=== PATIENT | female | born 1990 | race Caucasian/White ===

== ENCOUNTER → 2016-09-12 | Outpatient (REF) | payer OTHER, MEDICAID ==
[~2016-09-12] MED LIST: ACET50TA PO; IBUP-1114 PO; IBUP80TA PO; PRENTAB9 PO; TUMS500C PO; VITAPRTA PO
== END ==
LOC: M LAB REF 16:36
PROVIDERS: ATTEND Physician Assistant Medical
DX: J02.9 Acute pharyngitis, unspecified (principal)

== ENCOUNTER → 2017-03-27 | Outpatient (REF) | payer OTHER | LOC: M LAB REF 19:07 | PROVIDERS: ATTEND Nurse Practitioner Family | DX: J06.9 Acute upper respiratory infection, unspecified (principal) ==

== ENCOUNTER → 2018-02-19 | Outpatient (REF) | payer OTHER ==
[2018-02-19 17:04] LABS: CONTROL LINE HCG INT CTR LINE PRESENT; HCG, SERUM QUALITATIVE NEGATIVE (NEGATIVE)
[2018-02-19 17:16] LABS: BASO % 0.3 % (0.0-1.0); EOS # 0.1 10^3/uL (0.0-0.50); EOS % 1.4 % (0.0-3.0); HEMATOCRIT 38.6 % (36.0-47.0); HEMOGLOBIN 12.7 g/dl (12.0-15.5); IMMATURE GRANULOCYTE % 0.2 % (0-3.0); LYMPH # 3.7 10^3/uL (1.5-6.5); LYMPH % 42.4 % (24.0-44.0); MEAN CORPUSCULAR HEMOGLOBIN 27.7 pg (27.0-33.0); MEAN CORPUSCULAR HGB CONC 32.9 g/dl (32.0-36.5); MEAN CORPUSCULAR VOLUME 84.3 fl (80.0-96.0); MONO # 0.6 10^3/uL (0.0-0.8); MONO % 6.4 % (0.0-5.0); NEUTROPHILS # 4.3 10^3/uL (1.8-7.7); NEUTROPHILS % 49.3 % (36.0-66.0); PLATELET COUNT, AUTOMATED 309 10^3/uL (150-450); RED BLOOD COUNT 4.58 10^6/uL (4.00-5.40); RED CELL DISTRIBUTION WIDTH 12.4 % (11.5-14.5); WHITE BLOOD COUNT 8.8 10^3/uL (4.0-10.0)
[2018-02-19 17:19] LABS: ALBUMIN 3.9 GM/DL (3.2-5.2); ALBUMIN/GLOBULIN RATIO 1.11 (1.00-1.93); ALKALINE PHOSPHATASE 62 U/L (45-117); ALT/SGPT 24 U/L (12-78); ANION GAP 8 MEQ/L (8-16); AST/SGOT 15 U/L (7-37); BILIRUBIN,TOTAL 0.3 MG/DL (0.2-1.0); BLOOD UREA NITROGEN 8 MG/DL (7-18); CALCIUM LEVEL 8.9 MG/DL (8.5-10.1); CARBON DIOXIDE LEVEL 27 MEQ/L (21-32); CHLORIDE LEVEL 107 MEQ/L (98-107); FREE T4 1.24 NG/DL (0.76-1.46); GLOMERULAR FILTRATION RATE > 60.0 (>60); GLUCOSE, FASTING 96 MG/DL (70-100); POTASSIUM SERUM 4.7 MEQ/L (3.5-5.1); SODIUM LEVEL 142 MEQ/L (136-145); TOTAL PROTEIN 7.4 GM/DL (6.4-8.2)
== END ==
LOC: M SFHCADAM 08:58
DX: G44.52 New daily persistent headache (NDPH) (principal)

== ENCOUNTER → 2018-02-21 | Outpatient (CLI) | payer OTHER ==
[~2018-02-21] MED LIST changes: -ACET50TA PO; -IBUP-1114 PO; -IBUP80TA PO; +ISOVUE-370 76% 100ML VIAL (Q9967) As Ordered; -PRENTAB9 PO; -TUMS500C PO; -VITAPRTA PO
== END ==
LOC: M RAD 17:03
DX: R51 Headache (principal)

== ENCOUNTER 2018-03-21 14:21 | Emergency (ER) | payer OTHER, MEDICAID ==
[2018-03-21 14:51] LABS: BASO % 0.4 % (0.0-1.0); EOS # 0.3 10^3/uL (0.0-0.50); EOS % 2.6 % (0.0-3.0); HEMATOCRIT 38.6 % (36.0-47.0); HEMOGLOBIN 13.1 g/dl (12.0-15.5); IMMATURE GRANULOCYTE % 0.7 % (0-3.0); LYMPH # 3.3 10^3/uL (1.5-6.5); LYMPH % 33.1 % (24.0-44.0); MEAN CORPUSCULAR HEMOGLOBIN 27.5 pg (27.0-33.0); MEAN CORPUSCULAR HGB CONC 33.9 g/dl (32.0-36.5); MEAN CORPUSCULAR VOLUME 81.1 fl (80.0-96.0); MONO # 0.5 10^3/uL (0.0-0.8); MONO % 4.5 % (0.0-5.0); NEUTROPHILS # 5.9 10^3/uL (1.8-7.7); NEUTROPHILS % 58.7 % (36.0-66.0); PLATELET COUNT, AUTOMATED 304 10^3/uL (150-450); RED BLOOD COUNT 4.76 10^6/uL (4.00-5.40); RED CELL DISTRIBUTION WIDTH 12.3 % (11.5-14.5)
[2018-03-21 14:54] LABS: KETONE, URINE AUTO RFX NEGATIVE (NEGATIVE); LEUKOCYTE ESTERASE UR AUTO RFX NEGATIVE (NEGATIVE); NITRITE, URINE AUTO RFX NEGATIVE (NEGATIVE); RBC, URINE AUTO RFX 1 /HPF (0-3); SPECIFIC GRAVITY UR AUTO RFX 1.009 (1.002-1.035); SQUAM EPITHELIAL CELL UR AURFX 1 /HPF (0-6); WBC, URINE AUTO RFX 0 /HPF (0-3)
[2018-03-21 15:14] LABS: ANION GAP 9 MEQ/L (8-16); BLOOD UREA NITROGEN 10 MG/DL (7-18); CALCIUM LEVEL 9.1 MG/DL (8.5-10.1); CARBON DIOXIDE LEVEL 25 MEQ/L (21-32); CHLORIDE LEVEL 108 MEQ/L (98-107); GLOMERULAR FILTRATION RATE > 60.0 (>60); GLUCOSE, FASTING 107 MG/DL (70-100); POTASSIUM SERUM 3.8 MEQ/L (3.5-5.1); SODIUM LEVEL 142 MEQ/L (136-145)
[2018-03-21] MEDS ORDERED: ISOVUE-370 76% 100ML VIAL (Q9967) As Ordered (19:08)
[2018-03-21] MEDS: ONDANSETRON 4MG/2ML VIAL (J2405) IV (20:16)
[2018-03-21] MEDS: NS 1,000 ML IV (20:16)
[2018-03-21] MEDS: KETOROLAC 30 MG/ML VIAL (J1885) IV (20:17)
[2018-03-21] MEDS: GI COCKTAIL 50ML BTL(HYOSCYAMINE/MAALOX/LIDOCAINE VISCOUS)(1:3:1) PO (20:50)
== END 2018-03-21 21:22 | disposition home or self-care (01) ==
LOC: M ED 14:21
DX: K42.9 Umbilical hernia without obstruction or gangrene (principal); N83.202 Unspecified ovarian cyst, left side
CPT/HCPCS: J2405

== ENCOUNTER → 2018-04-19 | Outpatient (REF) | payer OTHER, MEDICAID ==
[2018-04-19 13:25] LABS: BASO % 0.3 % (0.0-1.0); EOS # 0.1 10^3/uL (0.0-0.50); HEMATOCRIT 39.8 % (36.0-47.0); HEMOGLOBIN 12.9 g/dl (12.0-15.5); IMMATURE GRANULOCYTE % 0.3 % (0-3.0); LYMPH # 3.2 10^3/uL (1.5-6.5); LYMPH % 46.1 % (24.0-44.0); MEAN CORPUSCULAR HEMOGLOBIN 27.6 pg (27.0-33.0); MEAN CORPUSCULAR HGB CONC 32.4 g/dl (32.0-36.5); MEAN CORPUSCULAR VOLUME 85.2 fl (80.0-96.0); MONO # 0.4 10^3/uL (0.0-0.8); MONO % 5.6 % (0.0-5.0); NEUTROPHILS # 3.3 10^3/uL (1.8-7.7); NEUTROPHILS % 46.7 % (36.0-66.0); PLATELET COUNT, AUTOMATED 329 10^3/uL (150-450); RED BLOOD COUNT 4.67 10^6/uL (4.00-5.40); RED CELL DISTRIBUTION WIDTH 12.6 % (11.5-14.5)
[2018-04-19 13:46] LABS: DRVV SCREEN 36.6 SEC
[2018-04-19 13:57] LABS: ALBUMIN/GLOBULIN RATIO 1.29 (1.00-1.93); ALKALINE PHOSPHATASE 72 U/L (45-117); ALT/SGPT 20 U/L (12-78); ANION GAP 7 MEQ/L (8-16); AST/SGOT 16 U/L (7-37); BILIRUBIN,TOTAL 0.4 MG/DL (0.2-1.0); BLOOD UREA NITROGEN 12 MG/DL (7-18); CALCIUM LEVEL 8.8 MG/DL (8.5-10.1); CARBON DIOXIDE LEVEL 27 MEQ/L (21-32); CHLORIDE LEVEL 108 MEQ/L (98-107); CREATININE FOR GFR 0.78 MG/DL (0.55-1.30); GLOMERULAR FILTRATION RATE > 60.0 (>60); GLUCOSE, FASTING 102 MG/DL (70-100); POTASSIUM SERUM 4.3 MEQ/L (3.5-5.1); RHEUMATOID FACTOR QUANT < 10.0 IU/ML (<15.0); SODIUM LEVEL 142 MEQ/L (136-145); TOTAL PROTEIN 7.1 GM/DL (6.4-8.2)
[2018-04-19 13:58] LABS: ERYTHROCYTE SEDIMENTATION RATE 13 mm/hr (0-20); FOLATE 13.8 NG/ML; TOTAL 25(OH) VITAMIN D 29.2 NG/ML (30.0-100.0)
[2018-04-19 14:42] LABS: PTT LUPUS TYPE ANTICOAG SCREEN 0.9 (0-1.2)
[2018-04-20 15:03] LABS: ANTINUCLEAR ANTIBODIES DIRECT Negative (Negative)
[2018-04-21 11:55] LABS: ALBUMIN 4.39 GM/DL (3.29-5.55); ALBUMIN % 61.9 % (55.8-66.1); ALPHA-1-GLOBULIN % 3.9 % (2.9-4.9); ALPHA-1-GLOBULINS 0.28 GM/DL (0.17-0.41); ALPHA-2-GLOBULINS 0.67 GM/DL (0.42-0.99); ALPHA-2-GLOBULINS % 9.5 % (7.1-11.8)
[2018-04-21 11:56] LABS: BETA-1-GLOBULINS 0.43 GM/DL (0.28-0.60); BETA-2-GLOBULINS 0.35 GM/DL (0.19-0.55); BETA-2-GLOBULINS % 4.9 % (3.2-6.5); GAMMA GLOBULIN % 13.8 % (11.1-18.8); GAMMA GLOBULINS 0.98 GM/DL (0.65-1.58)
[2018-04-22 14:21] LABS: VITAMIN B1 LEVEL WHOLE BLOOD 136.1 nmol/L (66.5-200.0); VITAMIN B6,PYRIDOXAL PHOSPHATE 5.7 ug/L (2.0-32.8)
[2018-04-24 01:40] LABS: VITAMIN E(ALPHA TOCOPHEROL) 10.5 mg/L (5.9-19.4); VITAMIN E(GAMMA TOCOPHEROL) 2.3 mg/L (0.7-4.9)
== END ==
LOC: M LABDRWAD 12:28
DX: R51 Headache (principal)

== ENCOUNTER → 2018-06-29 | Outpatient (REF) | payer OTHER, MEDICAID ==
[~2018-06-29] MED LIST changes: +IBUP-1114 PO; +IBUP80TA PO; -ISOVUE-370 76% 100ML VIAL (Q9967) As Ordered; +MAPA500T2 PO; +PRENTAB9 PO; +TUMS500C PO; +VITAPRTA PO; +ZOFR4TAB14 PO
[2018-06-29 18:45] LABS: HEMATOCRIT 37.3 % (36.0-47.0); HEMOGLOBIN 12.4 g/dl (12.0-15.5); MEAN CORPUSCULAR HEMOGLOBIN 27.6 pg (27.0-33.0); MEAN CORPUSCULAR HGB CONC 33.2 g/dl (32.0-36.5); MEAN CORPUSCULAR VOLUME 82.9 fl (80.0-96.0); PLATELET COUNT, AUTOMATED 325 10^3/uL (150-450); WHITE BLOOD COUNT 12.8 10^3/uL (4.0-10.0)
[2018-06-29 19:07] LABS: HCG, SERUM QUANTITATIVE 33 MIU/ML
[2018-06-29 19:25] LABS: RUBELLA IgG QUALITATIVE IMMUNE (IMMUNE)
[2018-06-29 19:54] LABS: HIV 1&2 SCREEN CENTAUR NEGATIVE (NEGATIVE)
[2018-07-01 10:49] LABS: HEPATITIS C VIRUS ABY INDEX 0.1 INDEX (<0.8)
== END ==
LOC: M LAB REF 17:29
PROVIDERS: ATTEND Obstetrics & Gynecology
DX: O36.80X0 Pregnancy with inconclusive fetal viability, not applicable or unspecified (principal)

== ENCOUNTER → 2018-07-01 | Outpatient (REF) | payer OTHER, MEDICAID ==
[2018-07-01 13:48] LABS: HCG, SERUM QUALITATIVE POSITIVE (NEGATIVE)
== END ==
LOC: M LAB REF 12:46
PROVIDERS: ATTEND Obstetrics & Gynecology
DX: O36.80X0 Pregnancy with inconclusive fetal viability, not applicable or unspecified (principal)

== ENCOUNTER → 2018-07-14 | Outpatient (REF) | payer OTHER, MEDICAID | LOC: M LAB REF 12:59 | PROVIDERS: ATTEND Obstetrics & Gynecology | DX: O03.4 Incomplete spontaneous abortion without complication (principal) ==

== ENCOUNTER → 2018-07-18 | Outpatient (REF) | payer BC | LOC: M LAB REF 13:14 | PROVIDERS: ATTEND Obstetrics & Gynecology | DX: O36.80X0 Pregnancy with inconclusive fetal viability, not applicable or unspecified (principal) ==

== ENCOUNTER → 2018-07-25 | Outpatient (REF) | payer BC | LOC: M LAB REF 12:50 | PROVIDERS: ATTEND Obstetrics & Gynecology | DX: O36.80X0 Pregnancy with inconclusive fetal viability, not applicable or unspecified (principal); Z3A.00 Weeks of gestation of pregnancy not specified ==

== ENCOUNTER → 2018-08-01 | Outpatient (REF) | payer BC | LOC: M LAB REF 13:15 | PROVIDERS: ATTEND Obstetrics & Gynecology | DX: O03.4 Incomplete spontaneous abortion without complication (principal) ==

== ENCOUNTER → 2018-11-29 | Outpatient (REF) | payer BC ==
[2018-11-29 20:32] LABS: HCG, SERUM QUALITATIVE POSITIVE (NEGATIVE)
[2018-11-29 20:41] LABS: PROTHROMBIN TIME 13.3 SECONDS (12.1-14.4)
== END ==
LOC: M LABDRWAD 19:09
PROVIDERS: ATTEND Physician Assistant Medical
DX: R90.89 Other abnormal findings on diagnostic imaging of central nervous system (principal)

== ENCOUNTER → 2018-11-30 | Outpatient (REF) | payer BC | LOC: M LAB REF 12:55 | PROVIDERS: ATTEND Physician Assistant | DX: J02.9 Acute pharyngitis, unspecified (principal) ==

== ENCOUNTER → 2018-12-08 | Outpatient (REF) | payer BC ==
[2018-12-08 13:24] LABS: HEMATOCRIT 38.2 % (36.0-47.0); HEMOGLOBIN 12.7 g/dl (12.0-15.5); MEAN CORPUSCULAR HEMOGLOBIN 28.9 pg (27.0-33.0); MEAN CORPUSCULAR HGB CONC 33.2 g/dl (32.0-36.5); MEAN CORPUSCULAR VOLUME 86.8 fl (80.0-96.0); PLATELET COUNT, AUTOMATED 329 10^3/uL (150-450); WHITE BLOOD COUNT 11.2 10^3/uL (4.0-10.0)
[2018-12-08 14:45] LABS: HCG, SERUM QUANTITATIVE 43214 MIU/ML
[2018-12-09 10:49] LABS: RUBELLA IgG QUALITATIVE IMMUNE (IMMUNE)
[2018-12-09 11:18] LABS: HIV 1&2 SCREEN CENTAUR NEGATIVE (NEGATIVE)
== END ==
LOC: M LAB REF 12:30
PROVIDERS: ATTEND Obstetrics & Gynecology
DX: O36.80X0 Pregnancy with inconclusive fetal viability, not applicable or unspecified (principal); Z32.01 Encounter for pregnancy test, result positive

== ENCOUNTER → 2019-05-10 | Outpatient (CLI) | payer BC, MEDICAID ==
[2019-05-10 16:31] LABS: HEMATOCRIT 31.5 % (36.0-47.0); HEMOGLOBIN 10.3 g/dl (12.0-15.5); MEAN CORPUSCULAR HEMOGLOBIN 28.4 pg (27.0-33.0); MEAN CORPUSCULAR HGB CONC 32.7 g/dl (32.0-36.5); MEAN CORPUSCULAR VOLUME 86.8 fl (80.0-96.0); PLATELET COUNT, AUTOMATED 268 10^3/uL (150-450); RED BLOOD COUNT 3.63 10^6/uL (4.00-5.40); WHITE BLOOD COUNT 9.6 10^3/uL (4.0-10.0)
== END ==
LOC: M LAB 14:29
PROVIDERS: ATTEND Obstetrics & Gynecology
DX: Z34.83 Encounter for supervision of other normal pregnancy, third trimester (principal)

== ENCOUNTER → 2019-06-27 | Outpatient (REF) | payer BC, MEDICAID | LOC: M LAB REF 13:34 | PROVIDERS: ATTEND Obstetrics & Gynecology | DX: Z36.85 Encounter for antenatal screening for Streptococcus B (principal); Z3A.00 Weeks of gestation of pregnancy not specified ==

== ENCOUNTER → 2019-07-12 | Outpatient (CLI) | payer BC, MEDICAID ==
--- NOTE | 2019-07-13 11:25 | REP ---
Clinical: Growth evaluation. Comparison: None . Findings: Examination demonstrates a single live intrauterine in breech presentation. motion is identified by technologist. Placenta is noted anterior/fundal and grade I I without evidence for placenta previa or abruption. Amniotic fluid volume is normal. Cervix measures 3.4 cm in length and appears closed. Nuchal cord cannot be excluded. Gestational age by LMP 37 weeks 4 days with SANGITA 07/29/2019 . Gestational age by current measurements 39 weeks 2 days with SANGITA 07/17/2019 . FHR equals 152 beats per minute. BPD 9.8 cm 40 weeks 1 day HC 35.6 cm 41 weeks 5 days AC 36.1 cm 40 weeks 0 days FL 7.5 cm 38 weeks 2 days HL 6.3 cm 36 weeks 2 days HC/AC ratio 0.98 Estimated weight 3925 grams ( 96th percentile). Amniotic fluid index: 17.3 cm (7.4 - 24.1) Umbilical cord SD ratio: 2.63 Anatomical assessment demonstrates normal structures including cranium, facial features, diaphragm, stomach, kidneys and bladder. Impression: Single live advanced gestation in breech presentation. Age by current measurements is greater than age by LMP. Nuchal cord cannot be excluded. Electronically Signed by Harish Francois MD 07/13/2019 06:17 A
== END ==
LOC: M RAD 10:42
PROVIDERS: ATTEND Obstetrics & Gynecology
DX: O32.1XX0 Maternal care for breech presentation, not applicable or unspecified (principal)

== ENCOUNTER 2019-07-24 21:30 | Inpatient (IN) | payer BC, MEDICAID ==
[~2019-07-24] VITALS: Ht 160 cm; Wt 96.1 kg
[2019-07-24 21:48] VITALS: BP 122/84
[2019-07-24 23:55] VITALS: BP 117/78
[2019-07-25] VITALS (36 sets, daily range): BP systolic 89–129; BP diastolic 50–78
[2019-07-25] MEDS ORDERED: LR 500 ML IV ONE (00:30)
[2019-07-25] MEDS: LR 1,000 ML IV SCH ×3 (00:30→18:54)
[2019-07-25 00:39] LABS: HEMATOCRIT 30.3 % (36.0-47.0); HEMOGLOBIN 9.4 g/dl (12.0-15.5); MEAN CORPUSCULAR VOLUME 77.5 fl (80.0-96.0); PLATELET COUNT, AUTOMATED 275 10^3/uL (150-450); RED BLOOD COUNT 3.91 10^6/uL (4.00-5.40); WHITE BLOOD COUNT 9.6 10^3/uL (4.0-10.0)
[2019-07-25] MEDS ORDERED: ONDANSETRON 4MG/2ML VIAL (J2405) As Ordered ONE (05:30)
[2019-07-25] MEDS ORDERED: ONDANSETRON 4MG/2ML VIAL (J2405) IV ONE (05:30)
--- NOTE | 2019-07-25 07:40 | HPE ---
DATE OF ADMISSION: 07/25/2019 Tiffany is a 28-year-old female 4, para 2-0-1-2 with an EDC of 07/29/2019, EGA 39 and 3/7th weeks gestation who presented to labor and delivery with complaints of regular contractions every 4-5 minutes and pelvic pressure. Upon evaluation she was found to be in early labor at this point she was monitored in labor and delivery. Her contractions persists and a decision was made to admit the patient. Her record reviewed which was essentially unremarkable. lab blood type is A positive, rubella immune, hepatitis negative, HIV negative, GC and chlamydia negative, 1 hour sugar testing was within normal limits. Her GBS is negative. PAST MEDICAL HISTORY: Significant for kidney stones. PAST SURGICAL HISTORY: Denies. SOCIAL HISTORY: She is . Denies any alcohol, drug or cigarette abuse. REVIEW OF SYSTEMS: Unremarkable. FAMILY HISTORY: Is significant for lung cancer, breast cancer, hypercholesterolemia and high blood pressure. MEDICATIONS: vitamins. ALLERGIES: No known drug allergies. PHYSICAL EXAMINATION ON ADMISSION: Obese female in no acute distress. Abdomen: Soft, nontender, nondistended. Extremities: No clubbing, cyanosis or edema. Vaginal exam 2 cm, 70% effaced, fetus at -3 to -4 station. Bedside ultrasound done confirmed vertex. Tracing reviewed, category I tracing, contractions every 4-7 minutes. ASSESSMENT: Intrauterine at 39-3/7th weeks gestation in early labor with significant contractions. PLAN: Admit to labor and delivery. We will continue to monitor the patient. Awaiting for spontaneous labor. Pain management also discussed. The patient up for an epidural. Continue to monitor. Anticipate delivery.
[2019-07-25] MEDS: miSOPROStol 50 MCG 1/2 TAB (S0191) PO SCH ×3 (13:30→20:00)
[2019-07-25] MEDS ORDERED: OXYTOCIN 30 UNITS IN 0.9% NaCl 500ML IV BAG (J2590) As Ordered ONE (17:41)
[2019-07-25] MEDS ORDERED: OXYTOCIN DRIP 30 UNITS in IV 1 EA IV SCH (17:45)
[2019-07-25] MEDS: FENTANYL/ROPIVACAINE/NACL BAG 100 ML EPIDURAL SCH (18:18)
[2019-07-25] MEDS ORDERED: EPIDURAL/PCA KEYS XX PRN (19:00)
[2019-07-25] MEDS ORDERED: NALOXONE INJ 0.4 MG/1 ML VIAL (J2310) IV PRN (19:00)
[2019-07-25] MEDS ORDERED: ePHEDrine SULFATE 25 MG/5 ML(5MG/ML) SYRINGE IV PRN (19:00)
[2019-07-25] MEDS ORDERED: REFRIGERATOR IV KEYS XX PRN (19:00)
[2019-07-25] MEDS ORDERED: diphenhydrAMINE INJ 50MG/ML VIAL (J1200) IV PRN (19:00)
[2019-07-25] MEDS ORDERED: EPIDURAL COMMENT XX SCH (19:00)
[2019-07-25] MEDS ORDERED: LACTATED RINGER'S 1000 ML IV PRN (19:00)
[2019-07-25] MEDS ORDERED: ONDANSETRON 4MG/2ML VIAL (J2405) IV PRN (19:00)
[2019-07-26] VITALS (18 sets, daily range): BP systolic 106–134; BP diastolic 56–79
[2019-07-26] MEDS: LR 1,000 ML IV SCH (00:30)
[2019-07-26] MEDS: FENTANYL/ROPIVACAINE/NACL BAG 100 ML EPIDURAL SCH (02:20)
[2019-07-26] MEDS: miSOPROStol 50 MCG 1/2 TAB (S0191) PO SCH ×2 (04:00)
[2019-07-26] MEDS ORDERED: ACETAMINOPHEN 500 MG TAB As Ordered ONE (05:08)
[2019-07-26] MEDS ORDERED: ACETAMINOPHEN 500 MG TAB PO ONE (05:15)
[2019-07-26] MEDS ORDERED: DIBUCAINE 1% OINTMENT 30GM TOP PRN (05:45)
[2019-07-26] MEDS ORDERED: MEASLES,MUMPS,RUBELLA VACCINE INJ (MMR-II) (90707) SC SCH (05:45)
[2019-07-26] MEDS ORDERED: OXYTOCIN DRIP 30 UNITS in IV 1 EA IV SCH (05:45)
[2019-07-26] MEDS ORDERED: RHOGAM 300 MCG (1500 IU) INJ (J2790) IM SCH (05:45)
[2019-07-26] MEDS ORDERED: IBUPROFEN 600 MG TAB PO PRN (05:45)
[2019-07-26] MEDS ORDERED: ANUSOL HC CREAM 30GM TOP PRN (05:45)
[2019-07-26] MEDS ORDERED: ONDANSETRON 4MG/2ML VIAL (J2405) IV PRN (05:45)
[2019-07-26] MEDS ORDERED: ACETAMINOPHEN TAB 650MG DOSE (2X325MG) PO PRN (05:45)
[2019-07-26] MEDS ORDERED: METHYLERGONOVINE MALEATE 0.2 MG TAB PO PRN (05:45)
[2019-07-26 05:48] LABS: CORD GAS ABE A -0.2; CORD GAS ABE V -0.2; CORD GAS HCO3 A 28.3 MEQ/L; CORD GAS HCO3 V 25.5 MEQ/L; CORD GAS O2 SAT A 27.2 %; CORD GAS O2 SAT V 62.4 %; CORD GAS PCO2 A 61.8 mmHg; CORD GAS PCO2 V 45.1 mmHg; CORD GAS PH A 7.279 UNITS; CORD GAS PH V 7.37 UNITS; CORD GAS PO2 A 15.5 mmHg; CORD GAS PO2 V 25.5 mmHg; CORD GAS SBC A 22.4 MEQ/L; CORD GAS SBC V 23.4 MEQ/L; CORD GAS TCO2 A 30.2 MEQ/L; CORD GAS TCO2 V 26.9 MEQ/L
[2019-07-26] MEDS: IBUPROFEN 800 MG TAB PO PRN ×2 (06:54→18:01)
[2019-07-26] MEDS: ACETAMINOPHEN 500 MG TAB PO PRN ×2 (11:14→21:25)
[2019-07-26] MEDS: PRENATAL VITAMINS CHEWABLE TABLET PO SCH (11:33)
[2019-07-26] MEDS: DOCUSATE SODIUM 100 MG CAP PO SCH ×2 (11:34→21:17)
--- NOTE | 2019-07-26 14:52 | DN ---
DATE OF DELIVERY: 07/26/2019 DELIVERY NOTE: Tiffany is a 28-year-old female, 4, para 2-0-1-2, with an estimated date of confinement (EDC) of 07/29/2019, estimated gestational age (EGA) 39-4/7 weeks gestation who presented to labor and delivery with complaints of contraction. She was found to be in early labor. She was then augmented with Cytotec as well as Pitocin. After an epidural she became fully dilated, delivered a live female infant in left occiput anterior position over an intact perineum. 8 and 9. weight 9 pounds 13 ounces. Placenta delivered spontaneously intact. Three-vessel cord. Perineum, vagina, and cervix inspected. No laceration noted. Estimated blood loss 300 mL. Both mother and baby in stable condition.
[2019-07-27] MEDS: IBUPROFEN 800 MG TAB PO PRN ×2 (03:17→11:35)
[2019-07-27 05:48] VITALS: BP 100/55
[2019-07-27] MEDS: DOCUSATE SODIUM 100 MG CAP PO SCH (08:10)
[2019-07-27] MEDS: PRENATAL VITAMINS CHEWABLE TABLET PO SCH (08:10)
== END 2019-07-27 12:02 | disposition home or self-care (01) | DRG 560 ==
LOC: M LDO 21:30 → M LDI 07-25 00:20 → M OBS 07-26 09:00
PROVIDERS: ADMIT Obstetrics & Gynecology; ATTEND Obstetrics & Gynecology
PROC: 10E0XZZ Delivery of Products of Conception, External Approach (ICD-10-PCS; principal; 2019-07-26)
DX: O80 Encounter for full-term uncomplicated delivery (principal); Z37.0 Single live birth; Z3A.39 39 weeks gestation of pregnancy

== ENCOUNTER 2019-12-30 17:55 | Emergency (ER) | payer BC, MEDICAID ==
[~2019-12-30] VITALS: Ht 162.6 cm; Wt 86.1 kg
[2019-12-30 17:55] VITALS: BP 123/77
[2019-12-30] MEDS ORDERED: ERYTHROMYCIN OPHTH OINT OD ONE (18:15)
[2019-12-30] MEDS ORDERED: TETRACAINE 0.5% OPHTH SOLN 4ML OD ONE (18:15)
[2019-12-30] MEDS ORDERED: IBUPROFEN 600MG TAB PO ONE (18:15)
[2019-12-30] MEDS ORDERED: IRRIGATION OPHTH SOLN (EYE WASH) 120ML OD ONE (18:15)
[2019-12-30] MEDS ORDERED: FLUORESCEIN OPHTH 1 MG STRIP OD ONE (18:15)
[2019-12-30] MEDS ORDERED: ERYT5OIN25 OD (18:25)
[2019-12-31] MEDS ORDERED: IBUP-1022 PO (09:11)
== END 2019-12-30 18:42 | disposition home or self-care (01) ==
LOC: M ED 17:55
DX: S05.01XA Injury of conjunctiva and corneal abrasion without foreign body, right eye, initial encounter (principal); X58.XXXA Exposure to other specified factors, initial encounter; Y92.89 Other specified places as the place of occurrence of the external cause

== ENCOUNTER 2019-12-31 09:07 | Emergency (ER) | payer BC, MEDICAID ==
[~2019-12-31] VITALS: Ht 162.6 cm; Wt 85.8 kg
[~2019-12-31 09:07] MED LIST changes: +ERYT5OIN25 OD
[2019-12-31] MEDS ORDERED: IBUP-1022 PO (09:11)
[2019-12-31] MEDS ORDERED: TETRACAINE 0.5% OPHTH SOLN 4ML OD ONE ×2 (09:45→11:30)
[2019-12-31] MEDS ORDERED: FLUORESCEIN OPHTH 1 MG STRIP OD ONE (10:00)
[2019-12-31] MEDS ORDERED: LORazepam 0.5 MG TAB PO STA (11:22)
[2019-12-31] MEDS ORDERED: ONDANSETRON 4 MG ORAL DISINTEGRATING TAB PO ONE (11:30)
[2019-12-31 11:55] VITALS: BP 117/73
== END 2019-12-31 11:57 | disposition home or self-care (01) ==
LOC: M ED 09:07
DX: S05.01XA Injury of conjunctiva and corneal abrasion without foreign body, right eye, initial encounter (principal); X58.XXXA Exposure to other specified factors, initial encounter; Y92.89 Other specified places as the place of occurrence of the external cause
CPT/HCPCS: 99283; Q0162

== ENCOUNTER → 2020-02-21 | Outpatient (REF) | payer BC, MEDICAID ==
[~2020-02-21] MED LIST changes: +IBUP-1022 PO
[2020-02-21 14:17] LABS: ALBUMIN 4.3 GM/DL (3.2-5.2); ALT/SGPT 16 U/L (12-78); BILIRUBIN,TOTAL 0.4 MG/DL (0.2-1.0); BLOOD UREA NITROGEN 13 MG/DL (7-18); CALCIUM LEVEL 9.6 MG/DL (8.5-10.1); CARBON DIOXIDE LEVEL 27 MEQ/L (21-32); CHLORIDE LEVEL 107 MEQ/L (98-107); CREATININE FOR GFR 0.71 MG/DL (0.55-1.30); GLOMERULAR FILTRATION RATE > 60.0 (>60); GLUCOSE, FASTING 92 MG/DL (70-100); POTASSIUM SERUM 4.6 MEQ/L (3.5-5.1); SODIUM LEVEL 137 MEQ/L (136-145); TOTAL PROTEIN 7.6 GM/DL (6.4-8.2)
[2020-02-21 14:19] LABS: BASO # 0.1 10^3/uL (0.0-0.2); BASO % 0.6 % (0.0-1.0); EOS # 0.1 10^3/uL (0.0-0.5); EOS % 1.7 % (0.0-3.0); LYMPH # 3.5 10^3/uL (1.5-5.0); LYMPH % 41.9 % (24.0-44.0); MEAN CORPUSCULAR HEMOGLOBIN 27.1 pg (27.0-33.0); MEAN CORPUSCULAR HGB CONC 31.7 g/dl (32.0-36.5); MEAN CORPUSCULAR VOLUME 85.6 fl (80.0-96.0); MONO # 0.6 10^3/uL (0.0-0.8); MONO % 6.8 % (0.0-5.0); NEUTROPHILS % 48.1 % (36.0-66.0); PLATELET COUNT, AUTOMATED 323 10^3/uL (150-450); RED BLOOD COUNT 4.79 10^6/uL (4.00-5.40); WHITE BLOOD COUNT 8.2 10^3/uL (4.0-10.0)
== END ==
LOC: M SFHCADAM 13:11
PROVIDERS: ATTEND Family Medicine
DX: Z00.00 Encounter for general adult medical examination without abnormal findings (principal); R10.9 Unspecified abdominal pain

== ENCOUNTER → 2020-11-28 | Outpatient (REF) | payer BC, MEDICAID ==
[2020-11-28 18:08] LABS: HEMATOCRIT 36.5 % (36.0-47.0); HEMOGLOBIN 11.9 g/dl (12.0-15.5); MEAN CORPUSCULAR HEMOGLOBIN 27.2 pg (27.0-33.0); MEAN CORPUSCULAR HGB CONC 32.6 g/dl (32.0-36.5); MEAN CORPUSCULAR VOLUME 83.5 fl (80.0-96.0); PLATELET COUNT, AUTOMATED 303 10^3/uL (150-450); RED BLOOD COUNT 4.37 10^6/uL (4.00-5.40)
[2020-11-28 19:34] LABS: HCG, SERUM QUANTITATIVE 4496 MIU/ML; HEPATITIS B SURFACE ANTIGEN NEGATIVE (NEGATIVE); HIV 1&2 SCREEN CENTAUR NEGATIVE (NEGATIVE)
== END ==
LOC: M LAB REF 16:55
PROVIDERS: ATTEND Obstetrics & Gynecology
DX: O36.80X0 Pregnancy with inconclusive fetal viability, not applicable or unspecified (principal); Z3A.00 Weeks of gestation of pregnancy not specified

== ENCOUNTER → 2020-12-05 | Outpatient (CLI) | payer BC, MEDICAID ==
--- NOTE | 2020-12-05 13:08 | REP ---
INDICATION: DATING AND VIABILITY COMPARISON: None. TECHNIQUE: Transabdominal and transvaginal 1st trimester obstetrical ultrasound with color Doppler evaluation. FINDINGS: Single live early intrauterine is appreciated. Gestational sac with yolk sac and pole identified. [place]-rump length of 6 mm corresponds to 6 weeks 3 days gestational age with estimated date of delivery 07/28/2021. heart rate equals 126 beats per minute. Maternal ovaries demonstrate septated cyst in the left ovary measuring 1.9 x 1.4 x 1.3 cm possibly representing corpus luteum. IMPRESSION: Single live early intrauterine at 6 weeks 3 days gestational age. Complete anatomical assessment should be performed and 19-20 weeks. <Electronically signed by Harish Francois > 12/05/20 [id number]
== END ==
LOC: M RAD 12:25
PROVIDERS: ATTEND Obstetrics & Gynecology
DX: Z36.89 Encounter for other specified antenatal screening (principal); N83.10 Corpus luteum cyst of ovary, unspecified side

== ENCOUNTER → 2020-12-05 | Outpatient (REF) | payer BC, MEDICAID | LOC: M LAB REF 17:29 | PROVIDERS: ATTEND Advanced Practice Midwife | DX: O20.0 Threatened abortion (principal) ==

== ENCOUNTER → 2020-12-07 | Outpatient (CLI) | payer BC, MEDICAID | LOC: M LAB 11:40 | PROVIDERS: ATTEND Obstetrics & Gynecology | DX: O20.0 Threatened abortion (principal); Z3A.00 Weeks of gestation of pregnancy not specified ==

== ENCOUNTER → 2020-12-09 | Outpatient (REF) | payer BC, MEDICAID | LOC: M LAB REF 16:51 | PROVIDERS: ATTEND Advanced Practice Midwife | DX: O36.80X0 Pregnancy with inconclusive fetal viability, not applicable or unspecified (principal); Z3A.00 Weeks of gestation of pregnancy not specified ==

== ENCOUNTER → 2020-12-16 | Outpatient (REF) | payer BC, MEDICAID | LOC: M LAB REF 16:51 | PROVIDERS: ATTEND Obstetrics & Gynecology | DX: O02.1 Missed abortion (principal) ==

== ENCOUNTER → 2020-12-23 | Outpatient (REF) | payer BC, MEDICAID | LOC: M LAB REF 16:29 | PROVIDERS: ATTEND Obstetrics & Gynecology | DX: O02.1 Missed abortion (principal) ==

== ENCOUNTER → 2020-12-31 | Outpatient (REF) | payer BC, MEDICAID | LOC: M LAB REF 12:14 | PROVIDERS: ATTEND Obstetrics & Gynecology | DX: O02.1 Missed abortion (principal) ==

== ENCOUNTER → 2021-01-09 | Outpatient (REF) | payer BC, MEDICAID | LOC: M LAB REF 16:35 | PROVIDERS: ATTEND Obstetrics & Gynecology | DX: O02.1 Missed abortion (principal) ==

== ENCOUNTER 2021-08-08 22:34 | Emergency (ER) | payer BC, MEDICAID ==
[~2021-08-08] VITALS: Ht 160 cm; Wt 88.6 kg
[2021-08-09] MEDS ORDERED: MORPHINE 4 MG/ML 1ML VIAL/SYRINGE (J2270) IV ONE (01:40)
[2021-08-09] MEDS ORDERED: ONDANSETRON 4MG/2ML VIAL IV ONE (01:40)
[2021-08-09 01:58] LABS: BASO # 0.1 10^3/uL (0.0-0.2); BASO % 0.4 % (0.0-1.0); EOS # 0.1 10^3/uL (0.0-0.5); EOS % 0.5 % (0.0-3.0); HEMATOCRIT 37.4 % (36.0-47.0); HEMOGLOBIN 12.3 g/dl (12.0-15.5); LYMPH # 3.6 10^3/uL (1.5-5.0); LYMPH % 26.8 % (24.0-44.0); MEAN CORPUSCULAR HEMOGLOBIN 27.1 pg (27.0-33.0); MEAN CORPUSCULAR HGB CONC 32.9 g/dl (32.0-36.5); MEAN CORPUSCULAR VOLUME 82.4 fl (80.0-96.0); MONO # 0.6 10^3/uL (0.0-0.8); MONO % 4.7 % (2.0-8.0); NEUTROPHILS # 8.9 10^3/uL (1.5-8.5); NEUTROPHILS % 67.3 % (36.0-66.0); PLATELET COUNT, AUTOMATED 320 10^3/uL (150-450); RED BLOOD COUNT 4.54 10^6/uL (4.00-5.40); WHITE BLOOD COUNT 13.3 10^3/uL (4.0-10.0)
[2021-08-09] MEDS ORDERED: ISOVUE-370 76% 100ML VIAL As Ordered ONE (02:36)
[2021-08-09 02:37] LABS: ERYTHROCYTE SEDIMENTATION RATE 19 mm/hr (0-20)
[2021-08-09] MEDS ORDERED: KETOROLAC 30 MG/ML 1ML VIAL IV ONE (03:00)
[2021-08-09 03:38] LABS: CK-MB VALUE MASS < 1.0 NG/ML (<3.6); CPK CREATINE PHOSPHOKINASE 43 U/L (26-192); MB/CK RELATIVE INDEX 2.33 (< OR =4)
[2021-08-09] MEDS ORDERED: NAPR-837 PO (04:56)
[2021-08-09 04:57] VITALS: BP 128/76
== END 2021-08-09 05:15 | disposition home or self-care (01) ==
LOC: EDBD 22:34 → M ED 22:34
DX: R07.9 Chest pain, unspecified (principal)
CPT/HCPCS: 71275; 80047; 82550; 82553; 84484; 84702; 85025; 85379; 85652; 86140; 93005; 96374; 96375; 99284; J1885; J2270; J2405; Q9967

== ENCOUNTER → 2021-09-04 | Outpatient (CLI) | payer BC, MEDICAID ==
[~2021-09-04] MED LIST changes: +NAPR-837 PO
[2021-09-04 17:33] LABS: BASO % 0.4 % (0.0-1.0); EOS # 0.1 10^3/uL (0.0-0.5); EOS % 1.3 % (0.0-3.0); HEMATOCRIT 38.9 % (36.0-47.0); HEMOGLOBIN 12.8 g/dl (12.0-15.5); LYMPH # 3.7 10^3/uL (1.5-5.0); LYMPH % 38.9 % (24.0-44.0); MEAN CORPUSCULAR HEMOGLOBIN 27.3 pg (27.0-33.0); MEAN CORPUSCULAR HGB CONC 32.9 g/dl (32.0-36.5); MEAN CORPUSCULAR VOLUME 82.9 fl (80.0-96.0); MONO # 0.5 10^3/uL (0.0-0.8); MONO % 5.6 % (2.0-8.0); NEUTROPHILS % 53.5 % (36.0-66.0); PLATELET COUNT, AUTOMATED 321 10^3/uL (150-450); RED BLOOD COUNT 4.69 10^6/uL (4.00-5.40); WHITE BLOOD COUNT 9.4 10^3/uL (4.0-10.0)
[2021-09-04 17:45] LABS: ALBUMIN 4.2 GM/DL (3.2-5.2); ALT/SGPT 25 U/L (12-78); BILIRUBIN,TOTAL 0.2 MG/DL (0.2-1.0); BLOOD UREA NITROGEN 12 MG/DL (7-18); CALCIUM LEVEL 9.4 MG/DL (8.5-10.1); CARBON DIOXIDE LEVEL 28 MEQ/L (21-32); CHLORIDE LEVEL 108 MEQ/L (98-107); CREATININE FOR GFR 0.69 MG/DL (0.55-1.30); GLOMERULAR FILTRATION RATE > 60.0 (>60); GLUCOSE, FASTING 106 MG/DL (70-100); POTASSIUM SERUM 4.7 MEQ/L (3.5-5.1); SODIUM LEVEL 139 MEQ/L (136-145); TOTAL PROTEIN 7.3 GM/DL (6.4-8.2)
== END ==
LOC: M PLALAB 15:20
PROVIDERS: ATTEND Nurse Practitioner Family
DX: Z00.00 Encounter for general adult medical examination without abnormal findings (principal)

== ENCOUNTER 2021-10-04 01:56 | Emergency (ER) | payer BC, MEDICAID ==
[~2021-10-04] VITALS: Ht 162.6 cm; Wt 89.4 kg
[2021-10-04 01:58] VITALS: BP 142/86
== END 2021-10-04 02:06 | disposition left against medical advice (07) ==
LOC: M ED 01:56
DX: Z53.21 Procedure and treatment not carried out due to patient leaving prior to being seen by health care provider (principal)

== ENCOUNTER → 2021-10-27 | Outpatient (CLI) | payer BC, MEDICAID | LOC: M PLALAB 15:43 | PROVIDERS: ATTEND Nurse Practitioner Family | DX: R10.84 Generalized abdominal pain (principal) ==

== ENCOUNTER → 2022-02-05 | Outpatient (REF) | payer BC, MEDICAID ==
[2022-02-05 17:45] LABS: HEMOGLOBIN 12.2 g/dl (12.0-15.5); MEAN CORPUSCULAR HEMOGLOBIN 27.7 pg (27.0-33.0); MEAN CORPUSCULAR VOLUME 84.1 fl (80.0-96.0); PLATELET COUNT, AUTOMATED 302 10^3/uL (150-450); WHITE BLOOD COUNT 9.2 10^3/uL (4.0-10.0)
[2022-02-06 00:37] LABS: HCG, SERUM QUANTITATIVE 33423 MIU/ML; HEPATITIS B SURFACE ANTIGEN NEGATIVE (NEGATIVE); HEPATITIS C VIRUS ABY INDEX < 0.0 INDEX (<0.8); HIV 1&2 SCREEN CENTAUR NEGATIVE (NEGATIVE)
== END ==
LOC: M LAB REF 16:15
PROVIDERS: ATTEND Obstetrics & Gynecology
DX: Z32.01 Encounter for pregnancy test, result positive (principal); O36.80X0 Pregnancy with inconclusive fetal viability, not applicable or unspecified

== ENCOUNTER → 2022-06-25 | Outpatient (CLI) | payer BC, MEDICAID ==
[2022-06-25 14:54] LABS: HEMATOCRIT 34.3 % (36.0-47.0); MEAN CORPUSCULAR HGB CONC 32.1 g/dl (32.0-36.5); MEAN CORPUSCULAR VOLUME 87.3 fl (80.0-96.0); PLATELET COUNT, AUTOMATED 308 10^3/uL (150-450); RED BLOOD COUNT 3.93 10^6/uL (4.00-5.40); WHITE BLOOD COUNT 10.4 10^3/uL (4.0-10.0)
== END ==
LOC: M PLALAB 11:17
PROVIDERS: ATTEND Obstetrics & Gynecology
DX: Z36.89 Encounter for other specified antenatal screening (principal)

== ENCOUNTER → 2022-09-01 | Outpatient (CLI) | payer BC, MEDICAID ==
[2022-09-01 17:12] LABS: BASO % 0.3 % (0.0-1.0); EOS # 0.1 10^3/uL (0.0-0.5); EOS % 0.8 % (0.0-3.0); HEMATOCRIT 34.9 % (36.0-47.0); HEMOGLOBIN 11.6 g/dl (12.0-15.5); LYMPH # 2.7 10^3/uL (1.5-5.0); LYMPH % 25.5 % (24.0-44.0); MEAN CORPUSCULAR HEMOGLOBIN 28.6 pg (27.0-33.0); MEAN CORPUSCULAR HGB CONC 33.2 g/dl (32.0-36.5); MONO # 0.8 10^3/uL (0.0-0.8); MONO % 7.6 % (2.0-8.0); NEUTROPHILS # 6.9 10^3/uL (1.5-8.5); PLATELET COUNT, AUTOMATED 244 10^3/uL (150-450); RED BLOOD COUNT 4.06 10^6/uL (4.00-5.40); WHITE BLOOD COUNT 10.7 10^3/uL (4.0-10.0)
[2022-09-01 17:18] LABS: ALBUMIN 2.8 G/DL (3.2-5.2); ALKALINE PHOSPHATASE 140 U/L (46-116); ALT/SGPT < 9 U/L (7.0-40); AST/SGOT 14 U/L (<34); BILIRUBIN,TOTAL 0.3 MG/DL (0.3-1.2); BLOOD UREA NITROGEN < 5 MG/DL (9-23); CALCIUM LEVEL 8.7 MG/DL (8.5-10.1); CARBON DIOXIDE LEVEL 25 MMOL/L (20-31); CHLORIDE LEVEL 104 MMOL/L (98-107); CREATININE FOR GFR 0.63 MG/DL (0.55-1.30); GLOMERULAR FILTRATION RATE > 60.0 (>60); GLUCOSE, FASTING 97 MG/DL (60-100); POTASSIUM SERUM 4.4 MMOL/L (3.5-5.1); SODIUM LEVEL 138 MMOL/L (136-145); TOTAL PROTEIN 6.1 G/DL (5.7-8.2)
== END ==
LOC: M PLALAB 15:14
PROVIDERS: ATTEND Nurse Practitioner Family
DX: Z00.00 Encounter for general adult medical examination without abnormal findings (principal)

== ENCOUNTER → 2022-09-01 | Outpatient (REF) | payer BC, MEDICAID | LOC: M LAB REF 12:28 | PROVIDERS: ATTEND Obstetrics & Gynecology | DX: Z34.83 Encounter for supervision of other normal pregnancy, third trimester (principal) ==

== ENCOUNTER 2022-09-23 18:16 | Inpatient (IN) | payer BC, MEDICAID ==
[~2022-09-23] VITALS: Ht 160 cm; Wt 97.8 kg
[2022-09-23] MEDS ORDERED: LACTATED RINGER'S 1000 ML IV STA (18:21)
[2022-09-23 18:36] VITALS: BP 139/91
[2022-09-23] MEDS ORDERED: TUMS500C PO (18:40)
[2022-09-23] MEDS ORDERED: COLA100C5 PO (18:41)
[2022-09-23] MEDS ORDERED: HOME MED LIST COMPLETE! XX SCH (18:45)
[2022-09-23 19:15] LABS: HEMATOCRIT 34.7 % (36.0-47.0); HEMOGLOBIN 11.6 g/dl (12.0-15.5); MEAN CORPUSCULAR HEMOGLOBIN 27.9 pg (27.0-33.0); MEAN CORPUSCULAR HGB CONC 33.4 g/dl (32.0-36.5); MEAN CORPUSCULAR VOLUME 83.4 fl (80.0-96.0); PLATELET COUNT, AUTOMATED 259 10^3/uL (150-450); RED BLOOD COUNT 4.16 10^6/uL (4.00-5.40); WHITE BLOOD COUNT 10.5 10^3/uL (4.0-10.0)
[2022-09-23] MEDS: LR 1,000 ML IV SCH (20:07)
[2022-09-23 20:08] VITALS: BP 131/90
[2022-09-23] MEDS: miSOPROStol 50MCG 1/2 TABLET PO SCH (20:39)
[2022-09-23 21:30] VITALS: BP 134/83
[2022-09-23 22:44] VITALS: BP 131/77
[2022-09-23 23:46] VITALS: BP 128/78
[2022-09-24] VITALS (55 sets, daily range): BP systolic 99–169; BP diastolic 54–94
[2022-09-24] MEDS: miSOPROStol 50MCG 1/2 TABLET PO SCH (01:04)
[2022-09-24] MEDS ORDERED: OXYTOCIN DRIP 30 UNITS in IV 1 EA IV SCH (07:45)
[2022-09-24] MEDS: LR 1,000 ML IV SCH ×5 (08:13→23:08)
[2022-09-24] MEDS ORDERED: EPIDURAL/PCA KEYS XX PRN (09:40)
[2022-09-24] MEDS ORDERED: ONDANSETRON 4MG 2ML VIAL IV PRN (09:40)
[2022-09-24] MEDS ORDERED: diphenhydrAMINE 50MG/ML VIAL IV PRN (09:40)
[2022-09-24] MEDS ORDERED: NALOXONE INJ 0.4MG/1ML VIAL IV PRN (09:40)
[2022-09-24] MEDS ORDERED: LR 500 ML IV PRN (09:40)
[2022-09-24] MEDS ORDERED: ePHEDrine SULFATE 25 MG/5 ML(5MG/ML) SYRINGE IVP PRN (09:40)
[2022-09-24] MEDS: FENTANYL/ROPIVACAINE/NACL BAG 100 ML EPIDURAL SCH ×2 (10:05→20:05)
[2022-09-25] VITALS (13 sets, daily range): BP systolic 110–156; BP diastolic 59–87
[2022-09-25 03:12] LABS: CORD GAS ABE A -1.4; CORD GAS HCO3 A 25.7 MEQ/L; CORD GAS O2 SAT A 23.3 %; CORD GAS PH A 7.311 UNITS; CORD GAS PO2 A 13.4 mmHg; CORD GAS SBC A 21.4 MEQ/L; CORD GAS TCO2 A 27.2 MEQ/L
[2022-09-25 03:13] LABS: CORD GAS HCO3 V 23.9 MEQ/L; CORD GAS O2 SAT V 64.2 %; CORD GAS PCO2 V 40.4 mmHg; CORD GAS PH V 7.389 UNITS; CORD GAS SBC V 22.8 MEQ/L; CORD GAS TCO2 V 25.1 MEQ/L
[2022-09-25] MEDS ORDERED: RHOGAM 300MCG (1500IU) INJ IM SCH (03:15)
[2022-09-25] MEDS ORDERED: OXYTOCIN DRIP 30 UNITS in IV 1 EA IV SCH (03:15)
[2022-09-25] MEDS ORDERED: DOCUSATE SODIUM 100MG CAPSULE PO PRN (03:15)
[2022-09-25] MEDS ORDERED: DIBUCAINE 1% OINTMENT 30GM TOP PRN (03:15)
[2022-09-25] MEDS ORDERED: ACETAMINOPHEN 500 MG TAB PO PRN (03:15)
[2022-09-25] MEDS ORDERED: ACETAMINOPHEN TAB 650MG DOSE (2X325MG) PO PRN (03:15)
[2022-09-25] MEDS ORDERED: METHYLERGONOVINE MALEATE 0.2 MG TAB PO PRN (03:15)
[2022-09-25] MEDS ORDERED: IBUPROFEN 600MG TAB PO PRN (03:15)
[2022-09-25] MEDS: IBUPROFEN 800 MG TAB PO PRN ×3 (05:27→21:47)
[2022-09-25] MEDS: PRENATAL VITAMINS CHEWABLE TABLET PO SCH (09:59)
[2022-09-26 06:00] VITALS: BP 116/72
[2022-09-26] MEDS: IBUPROFEN 800 MG TAB PO PRN (06:26)
[2022-09-26] MEDS: PRENATAL VITAMINS CHEWABLE TABLET PO SCH (08:51)
[2022-09-27] MEDS ORDERED: MEASLES,MUMPS,RUBELLA VACCINE INJ (MMR-II) SC.IMMUN ONE (09:00)
== END 2022-09-26 13:53 | disposition home or self-care (01) | DRG 560 ==
LOC: M LDI 18:16 → M OBS 09-25 05:05
PROVIDERS: ADMIT Obstetrics & Gynecology; ATTEND Obstetrics & Gynecology
PROC: 3E0P7GC Introduction of Other Therapeutic Substance into Female Reproductive, Via Natural or Artificial Opening (ICD-10-PCS; 2022-09-23)
PROC: 10E0XZZ Delivery of Products of Conception, External Approach (ICD-10-PCS; principal; 2022-09-25)
PROC: 10907ZC Drainage of Amniotic Fluid, Therapeutic from Products of Conception, Via Natural or Artificial Opening (ICD-10-PCS; 2022-09-25)
DX: O36.63X0 Maternal care for excessive fetal growth, third trimester, not applicable or unspecified (principal); O69.2XX0 Labor and delivery complicated by other cord entanglement, with compression, not applicable or unspecified; Z3A.39 39 weeks gestation of pregnancy; Z37.0 Single live birth

== ENCOUNTER → 2023-04-27 | Outpatient (REF) | payer BC, MEDICAID ==
[~2023-04-27] MED LIST changes: +COLA100C5 PO
[2023-04-27 18:53] LABS: ALBUMIN 3.9 G/DL (3.2-5.2); ALKALINE PHOSPHATASE 64 U/L (46-116); ALT/SGPT 15 U/L (7.0-40); AST/SGOT 13 U/L (<34); BILIRUBIN,DIRECT < 0.1 MG/DL (<0.4); BILIRUBIN,TOTAL 0.3 MG/DL (0.3-1.2); TOTAL PROTEIN 6.9 G/DL (5.7-8.2)
== END ==
LOC: M LABDRAWP 17:29
PROVIDERS: ATTEND Nurse Practitioner Family
DX: R94.5 Abnormal results of liver function studies (principal)

== ENCOUNTER → 2024-01-26 | Outpatient (CLI) | payer BC | LOC: M PLAIMG 12:00 | PROVIDERS: ATTEND Nurse Practitioner Family | DX: R05.9 Cough, unspecified (principal) ==

== ENCOUNTER → 2024-09-22 | Outpatient (CLI) | payer BC ==
[2024-09-22 11:08] LABS: BASO % 0.4 % (0.0-1.0); EOS # 0.1 10^3/uL (0.0-0.5); EOS % 1.2 % (0.0-3.0); HEMATOCRIT 40.9 % (36.0-47.0); HEMOGLOBIN 13.3 g/dl (12.0-15.5); LYMPH # 2.8 10^3/uL (1.5-5.0); LYMPH % 34.2 % (24.0-44.0); MEAN CORPUSCULAR HEMOGLOBIN 28.3 pg (27.0-33.0); MEAN CORPUSCULAR HGB CONC 32.5 g/dl (32.0-36.5); MONO # 0.6 10^3/uL (0.0-0.8); MONO % 7.3 % (2.0-8.0); NEUTROPHILS # 4.7 10^3/uL (1.5-8.5); NEUTROPHILS % 56.7 % (36.0-66.0); PLATELET COUNT, AUTOMATED 332 10^3/uL (150-450); WHITE BLOOD COUNT 8.3 10^3/uL (4.0-10.0)
[2024-09-22 11:29] LABS: ALBUMIN 3.7 G/DL (3.2-5.2); ALKALINE PHOSPHATASE 59 U/L (35-104); ALT/SGPT 12 U/L (7.0-40); AST/SGOT 9 U/L (<34); BILIRUBIN,TOTAL 0.5 MG/DL (0.3-1.2); BLOOD UREA NITROGEN 9 MG/DL (9-23); CALCIUM LEVEL 9.2 MG/DL (8.5-10.1); CARBON DIOXIDE LEVEL 26 MMOL/L (20-31); CHLORIDE LEVEL 105 MMOL/L (98-107); CHOLESTEROL LEVEL 251 MG/DL (<200); CHOLESTEROL RISK RATIO 5.31 (<5); CREATININE FOR GFR 0.76 MG/DL (0.55-1.30); GLOMERULAR FILTRATION RATE > 60.0 (>60); GLUCOSE, FASTING 112 MG/DL (60-100); HDL CHOLESTEROL 47.2 MG/DL (>40); LDL CHOLESTEROL 168.6 MG/DL (<100); NON-HDL-C 203.8 MG/DL; POTASSIUM SERUM 4.4 MMOL/L (3.5-5.1); SODIUM LEVEL 142 MMOL/L (136-145); TOTAL PROTEIN 6.9 G/DL (5.7-8.2); TRIGLYCERIDES LEVEL 176 MG/DL (<150)
== END ==
LOC: M PLALAB 07:17
PROVIDERS: ATTEND Registered Nurse
DX: Z00.00 Encounter for general adult medical examination without abnormal findings (principal)

== ENCOUNTER → 2025-05-27 | Outpatient (REF) | payer BC, OTHER ==
[~2025-05-27] MED LIST changes: -IBUP-1022 PO; +IBUP600T42 PO
== END ==
LOC: M LAB REF 11:32
DX: B34.9 Viral infection, unspecified (principal)